=== PATIENT | male | born 1955 | race Caucasian/White ===

== ENCOUNTER 2018-02-21 09:37 | Inpatient (IN) | payer OTHER ==
[~2018-02-21] VITALS: Ht 177.8 cm; Wt 99.0 kg
[~2018-02-21 09:37] MED LIST: ALBU90OI6 INH; ALPR.5 PO; ALPR1; AMOX875 PO; ASPI81EC PO; BLOOD PRESSURE MED; BUPR150T2; CEPH500 PO; CYAN1000 PO; FLUSAL5005 INH; GAVILAX17 GM PO; GEMF600 PO; HYDMOR2 PO; IBUP800 PO; LEVFLO500 PO; LISHYD2012 PO; MONT10T PO; NIFE60ER; Naprosyn500 MG PO; POLY500 PO; ROXICODONE5 MG PO; RXCEPH500 PO; RXHYDMOR2 PO; SALM50IP; TAMS.4ER PO; TIOT18 INH; Ultram50 MG PO; ZOLP10; ZOLP10 PO
[2018-02-21 10:50] LABS: Base Excess Venous -3.8 mmol/L; Bicarbonate Venous 21.7 mmol/L (24.0-30.0); PCO2 Venous 34.3 mmHg (38-42); PO2 Venous 92 mmHg (38-42)
[2018-02-21 10:52] LABS: BASOPHILS ABSOLUTE AUTO 0.03 K/mm3 (0.00-0.23); BASOPHILS PERCENT AUTO 0 % (0-2); EOSINOPHILS ABSOLUTE AUTO 0.02 K/mm3 (0.00-0.68); EOSINOPHILS PERCENT AUTO 0 % (0-6); Hematocrit 35.8 % (37.0-53.0); IMMATURE GRAN PERCENT AUTO 1 % (0-1); LYMPHOCYTES ABSOLUTE AUTO 0.44 K/mm3 (0.84-5.20); LYMPHOCYTES PERCENT AUTO 5 % (21-46); MONOCYTES ABSOLUTE AUTO 0.76 K/mm3 (0.16-1.47); MONOCYTES PERCENT AUTO 9 % (4-13); Mean Corpuscular HGB 30.6 pg (26.0-34.0); Mean Corpuscular HGB Conc 33.5 g/dL (31.5-36.5); Mean Corpuscular Volume 91 fL (80-100); Mean Platelet Volume 9.5 fL (9.1-12.4); NEUTROPHILS ABSOLUTE AUTO 6.81 K/mm3 (1.96-9.15); NEUTROPHILS PERCENT AUTO 84 % (41-73); Platelet Count 326 K/mm3 (150-400); RDW Coefficient Variation 13.5 % (11.7-14.2); RDW Standard Deviation 45.4 fL (35.1-46.3); Red Blood Cell Count 3.92 M/mm3 (4.30-5.90); White Blood Cell Count 8.16 K/mm3 (4.00-11.30)
[2018-02-21 11:22] LABS: Alanine Aminotransfer (ALT/SGP 29 U/L (12-78); Albumin, Blood 2.9 g/dL (3.4-5.0); Albumin/Globulin Ratio 0.6 (0.8-1.8); Alk Phos 57 U/L (50-136); Anion Gap 9 mmol/L (6-16); Aspartate Aminotrans (AST/SGOT 23 U/L (12-37); Bilirubin, Total 0.3 mg/dL (0.1-1.0); Blood Urea Nitrogen 22 mg/dL (8-24); CO2, Blood 23 mmol/L (21-32); Calcium, Blood 9.2 mg/dL (8.5-10.1); Chloride, Blood 99 mmol/L (98-108); Globulin, Blood 4.7 g/dL (2.2-4.0); Glomerular Filtration Rate >60 (60-); Glucose, Blood 91 mg/dL (70-99); Potassium, Blood 4.1 mmol/L (3.5-5.5); Sodium, Blood 131 mmol/L (136-145); Total Protein, Blood 7.6 g/dL (6.4-8.2); Troponin I <0.015 ng/mL (0.000-0.040)
[2018-02-21 11:24] LABS: Thyroid Stimulating Hormone 0.437 uIU/mL (0.360-4.800)
[2018-02-21 17:05] LABS: U Amphetamine Screen Not Detected; U Barbituate Screen Not Detected; U Benzodiazapine Screen Not Detected; U Buprenorphine Screen Not Detected; U Cannabinoids Screen Not Detected; U Cocaine Screen Not Detected; U Methadone Screen Not Detected; U Methamphetamine Screen Not Detected; U Opiates Screen Not Detected; U Oxycodone Screen DETECTED; U Phencyclidine Screen Not Detected; U Propoxyphene Screen Not Detected
[2018-02-21 17:12] LABS: Bilirubin, Urine Neg (Neg); Blood, Urine 2+ (Neg); Glucose Qualitative, Urine Neg (Neg); Ketones, Urine Neg (Neg); Leukocyte Esterase, Urine Neg (Neg); Nitrite, Urine Neg (Neg); Protein, Urine 2+ (Neg); Urobilinogen, Urine NORM (Normal); pH, Urine 6.5 (5.0-8.0)
[2018-02-21 17:14] LABS: Appearance, Urine Clear (Clear); Color, Urine Yellow (P-Yellow)
[2018-02-21 17:15] LABS: Bacteria Few /hpf; Squamous Epithelial Cells Few /hpf (Few); White Blood Cells, Urine 0-2 /hpf (0-5)
[2018-02-22 13:43] LABS: Creatinine, Blood 0.97 mg/dL (0.60-1.20); Vancomycin, Trough 7.8 ug/mL (5.0-10.0)
[2018-02-23 04:07] LABS: Hemoglobin 10.7 g/dL (13.5-17.5); Mean Corpuscular HGB 30.1 pg (26.0-34.0); Mean Corpuscular HGB Conc 33.4 g/dL (31.5-36.5); Mean Corpuscular Volume 90 fL (80-100); Mean Platelet Volume 9.9 fL (9.1-12.4); Platelet Count 377 K/mm3 (150-400); RDW Coefficient Variation 13.6 % (11.7-14.2); Red Blood Cell Count 3.55 M/mm3 (4.30-5.90); White Blood Cell Count 10.48 K/mm3 (4.00-11.30)
[2018-02-23 04:27] LABS: Anion Gap 7 mmol/L (6-16); Blood Urea Nitrogen 27 mg/dL (8-24); Bun/Creatinine Ratio 29.5 (12.0-20.0); CO2, Blood 23 mmol/L (21-32); Calcium, Blood 9.3 mg/dL (8.5-10.1); Chloride, Blood 106 mmol/L (98-108); Creatinine, Blood 0.92 mg/dL (0.60-1.20); Glomerular Filtration Rate >60 (60-); Glucose, Blood 177 mg/dL (70-99); Potassium, Blood 4.4 mmol/L (3.5-5.5); Sodium, Blood 136 mmol/L (136-145)
[2018-02-24] MEDS ORDERED: METO50ER PO (08:24)
[2018-02-24] MEDS ORDERED: LEVO750 PO (08:25)
[2018-02-24] MEDS ORDERED: XARELTO20 MG PO (08:25)
[2018-02-24] MEDS ORDERED: PRED10 (08:28)
== END 2018-02-24 11:09 | disposition home or self-care (01) | DRG 871 ==
LOC: ER 09:37 → ICUW 11:44 → PCU 12:50 → ICUW 02-22 08:01 → PCU 02-22 16:22
PROVIDERS: Emergency Medicine; Internal Medicine; Pharmacist
DX: A41.9 Sepsis, unspecified organism (principal); J18.9 Pneumonia, unspecified organism; J96.01 Acute respiratory failure with hypoxia; J44.1 Chronic obstructive pulmonary disease with (acute) exacerbation; E87.1 Hypo-osmolality and hyponatremia; R65.20 Severe sepsis without septic shock; Y95 Nosocomial condition; I48.91 Unspecified atrial fibrillation; F17.200 Nicotine dependence, unspecified, uncomplicated; E78.5 Hyperlipidemia, unspecified; Z79.51 Long term (current) use of inhaled steroids; Z79.899 Other long term (current) drug therapy
CPT/HCPCS: 36415; 71045; 71260; 80048; 80053; 80202; 81001; 82565; 82803; 83605; 83690; 83880; 84443; 84484; 85025; 85027; 87070; 87205; 93005; 93010; 93306; 94640; 94760; 96361; 96365; 99285; J1650; J1956; J2543; J2930; J3370; J7030; J7050; J7120; Q9967

== ENCOUNTER → 2018-03-30 | Outpatient (CLI) | payer OTHER, SELFPAY ==
[~2018-03-30] MED LIST changes: +LEVO750 PO; +METO50ER PO; +PRED10; +XARELTO20 MG PO
== END | disposition home or self-care (01) ==
LOC: PLD 13:55 → LAB SHORT 13:55
DX: D04.61 Carcinoma in situ of skin of right upper limb, including shoulder (principal)
CPT/HCPCS: 88305

== ENCOUNTER → 2018-10-31 | Outpatient (CLI) | payer OTHER | END | disposition home or self-care (01) | LOC: PLD 11:08 → LAB SHORT 11:08 | DX: L57.0 Actinic keratosis (principal) | CPT/HCPCS: 88305 ==

== ENCOUNTER 2020-11-25 08:37 | Day surgery (SDC) | payer OTHER, SELFPAY ==
[~2020-11-25] VITALS: Ht 177.8 cm; Wt 88.3 kg
--- NOTE | 2020-11-25 09:09 | NUR ---
11/25/20 0909 Caron Friend INSTANTLY BRUISED ON IV FYI
--- NOTE | 2020-11-25 10:34 | NUR ---
11/25/20 1034 Mi Johansen 6ML NACL USED FOR POLYP REMOVAL.
[2021-05-15] MEDS ORDERED: MONT10T PO (09:52)
[2021-05-15] MEDS ORDERED: LISINOPRIL-HCT1 EACH PO (09:52)
[2021-05-15] MEDS ORDERED: IBUP800 PO (09:52)
== END 2020-11-25 10:56 | disposition home or self-care (01) ==
LOC: ORSCSDS 08:37
PROVIDERS: Internal Medicine Gastroenterology
PROC: 0DBL8ZX Excision of Transverse Colon, Via Natural or Artificial Opening Endoscopic, Diagnostic (ICD-10-PCS; principal; 2020-11-25 09:45)
PROC: 0DBN8ZX Excision of Sigmoid Colon, Via Natural or Artificial Opening Endoscopic, Diagnostic (ICD-10-PCS; principal; 2020-11-25 09:45)
PROC: 0DBP8ZX Excision of Rectum, Via Natural or Artificial Opening Endoscopic, Diagnostic (ICD-10-PCS; principal; 2020-11-25 09:45)
DX: Z12.11 Encounter for screening for malignant neoplasm of colon (principal); C20 Malignant neoplasm of rectum; Z86.010 Personal history of colon polyps; D12.3 Benign neoplasm of transverse colon; D12.4 Benign neoplasm of descending colon; I10 Essential (primary) hypertension; E78.00 Pure hypercholesterolemia, unspecified; J44.9 Chronic obstructive pulmonary disease, unspecified; Z79.899 Other long term (current) drug therapy; I48.91 Unspecified atrial fibrillation; Z79.01 Long term (current) use of anticoagulants; F17.210 Nicotine dependence, cigarettes, uncomplicated
CPT/HCPCS: 88305; J2704; J7120

== ENCOUNTER 2020-12-04 10:14 | Day surgery (SDC) | payer OTHER, SELFPAY ==
[~2020-12-04] VITALS: Ht 177.8 cm; Wt 86.0 kg
[2020-12-04] MEDS ORDERED: ASPI81CH (10:29)
[2021-05-15] MEDS ORDERED: IBUP800 PO (09:52)
[2021-05-15] MEDS ORDERED: MONT10T PO (09:52)
[2021-05-15] MEDS ORDERED: LISINOPRIL-HCT1 EACH PO (09:52)
== END 2020-12-04 12:34 | disposition home or self-care (01) ==
LOC: ORSCSDS 10:14
PROVIDERS: Internal Medicine Gastroenterology
PROC: 3E0H8KZ Introduction of Other Diagnostic Substance into Lower GI, Via Natural or Artificial Opening Endoscopic (ICD-10-PCS; principal; 2020-12-04 11:30)
PROC: 0DBP8ZX Excision of Rectum, Via Natural or Artificial Opening Endoscopic, Diagnostic (ICD-10-PCS; principal; 2020-12-04 11:30)
DX: C20 Malignant neoplasm of rectum (principal); K62.1 Rectal polyp; K57.30 Diverticulosis of large intestine without perforation or abscess without bleeding; K64.8 Other hemorrhoids; Z86.010 Personal history of colon polyps; I10 Essential (primary) hypertension; E78.00 Pure hypercholesterolemia, unspecified; J44.9 Chronic obstructive pulmonary disease, unspecified; Z79.899 Other long term (current) drug therapy
CPT/HCPCS: 88305; J2704; J7120

== ENCOUNTER 2021-05-22 10:11 | Day surgery (SDC) | payer MEDICARE, OTHER ==
[~2021-05-22] VITALS: Ht 177.8 cm; Wt 79.1 kg
[~2021-05-22 10:11] MED LIST changes: +ASPI81CH; +LISINOPRIL-HCT1 EACH PO
--- NOTE | 2021-05-22 10:54 | NUR ---
05/22/21 1054 Faina Quiroz UNSUCCESSFUL IV ATTEMPT TO RIGHT WRIST. SUCCESSFUL IV TO RIGHT FOREARM.
== END 2021-05-22 12:10 | disposition home or self-care (01) ==
LOC: ORSCSDS 10:11
PROVIDERS: Internal Medicine Gastroenterology
PROC: 0DJD8ZZ Inspection of Lower Intestinal Tract, Via Natural or Artificial Opening Endoscopic (ICD-10-PCS; principal; 2021-05-22 11:15)
DX: K62.5 Hemorrhage of anus and rectum (principal); Z85.048 Personal history of other malignant neoplasm of rectum, rectosigmoid junction, and anus; Z86.010 Personal history of colon polyps; K64.4 Residual hemorrhoidal skin tags; J44.9 Chronic obstructive pulmonary disease, unspecified; E78.5 Hyperlipidemia, unspecified; I10 Essential (primary) hypertension; I48.91 Unspecified atrial fibrillation; F17.210 Nicotine dependence, cigarettes, uncomplicated; E66.9 Obesity, unspecified; Z68.33 Body mass index [BMI] 33.0-33.9, adult; Z79.899 Other long term (current) drug therapy
CPT/HCPCS: J2704; J7120

== ENCOUNTER 2023-11-22 11:28 | Day surgery (SDC) | payer OTHER ==
[~2023-11-22] VITALS: Ht 177.8 cm; Wt 97.0 kg
[2023-11-22] MEDS ORDERED: MULVITA (12:07)
[2023-11-22] MEDS ORDERED: ZINC15 (12:07)
[2023-11-22] MEDS ORDERED: Vitamin C100 M1 (12:07)
[2023-11-22] MEDS ORDERED: ERGO400 (12:07)
[2023-11-22] MEDS ORDERED: Vitamin B-12100 MCG (12:07)
[2023-11-22 14:06] VITALS: BP 98/64
== END 2023-11-22 13:58 | disposition home or self-care (01) ==
LOC: ORSCSDS 11:28
PROVIDERS: Internal Medicine Gastroenterology
PROC: 0DJD8ZZ Inspection of Lower Intestinal Tract, Via Natural or Artificial Opening Endoscopic (ICD-10-PCS; principal; 2023-11-22 12:45)
DX: Z12.11 Encounter for screening for malignant neoplasm of colon (principal); Z85.048 Personal history of other malignant neoplasm of rectum, rectosigmoid junction, and anus; Z86.010 Personal history of colon polyps; K64.4 Residual hemorrhoidal skin tags; I10 Essential (primary) hypertension; J44.9 Chronic obstructive pulmonary disease, unspecified; E78.5 Hyperlipidemia, unspecified; Z79.82 Long term (current) use of aspirin; Z79.899 Other long term (current) drug therapy
CPT/HCPCS: J0461; J2405; J2704; J7120; Q9968

== ENCOUNTER 2025-10-03 07:31 | Day surgery (SDC) | payer OTHER ==
[2025-10-03] VITALS (33 sets, daily range): BP systolic 130–196; BP diastolic 61–99
[~2025-10-03] VITALS: Ht 177.8 cm; Wt 114.0 kg
[~2025-10-03 07:31] MED LIST changes: +ASPI81CH PO; +BREZTRI AEROS10.7 GM INH; +ERGO400; +FLUT1DIS8 INH; +Furosemide20 MG PO; +METF500 PO; +MULVITA; +POTA10T PO; +PRED20 PO; +ROSUVASTATIN CA20 MG PO; +Vitamin B-12100 MCG; +Vitamin C100 M1; +ZINC15
[2025-10-03] MEDS ORDERED: Midazolam HCl 1MG / ML 2ML Vial ONE (09:30)
[2025-10-03] MEDS ORDERED: CeFAZolin Sodium 2,000 MG in NS 100 ML IV SCH ×2 (09:55→19:00)
[2025-10-03] MEDS ORDERED: EPINEPhrine HCl 1 MG / ML 30ML Vial ONE (10:25)
[2025-10-03] MEDS ORDERED: FentaNYL Citrate 50 MCG/ML 2 ML Injection ONE (10:29)
[2025-10-03] MEDS ORDERED: Rocuronium Bromide 10 MG/ML 5ML Injection IV ONE (10:31)
[2025-10-03] MEDS ORDERED: Phenylephrine HCl 100 MCG/ML-NS 10MLSYR (1MG/10ML) ONE ×2 (10:52→11:30)
[2025-10-03] MEDS ORDERED: Dexamethasone Sod Phos 10 MG/ML 1ML VIAL ONE (11:02)
[2025-10-03] MEDS ORDERED: Ondansetron HCl 2 MG / ML 2ML Vial ONE (11:02)
[2025-10-03] MEDS ORDERED: Ketamine HCl 100 MG / ML 5ML Vial ONE (11:04)
[2025-10-03] MEDS ORDERED: FentaNYL Citrate 50 MCG/ML 2 ML Injection IV PRN ×3 (11:10→21:10)
[2025-10-03] MEDS ORDERED: HYDROmorphone HCl/Pf 1MG SYR IV PRN ×3 (11:10→17:05)
[2025-10-03] MEDS ORDERED: Albuterol 2.5 MG/3 ML VIAL INH PRN ×2 (11:15→23:30)
[2025-10-03] MEDS ORDERED: Metoclopramide HCl 5MG / ML 2ML Vial IV PRN (11:15)
[2025-10-03] MEDS ORDERED: Bupivacaine 0.25% Epi 1:200000 30 ML Vial INJ ONE (11:15)
[2025-10-03] MEDS ORDERED: Sugammadex Sodium 200 MG/2ML SDV (100 MG/ML) ONE (12:24)
--- NOTE | 2025-10-03 14:45 | NUR ---
PT ARRIVED VERY PAINFUL PT REPORTS PAIN OF 10/10 PT IS ON 5L O2 BASELINE O2 SATS IN THE LOW 90'S BP ELEVATED, REPORTED TO ALTERATION WORKER ALTERATION WORKER CONTACTED MD FOR POSSIBLE EXTENDED STAY PT INFORMED US THAT HE HAS NO ONE TO HELP HIM ONCE HE GETS HOME MEDICATED WITH 5MG OXYCODONE AND 0.5 DILAUDID 20 MINS LATER PATIENT IS SLEEPING QUIETLY
[2025-10-03] MEDS ORDERED: HydrALAZINE HCl 20 MG / ML 1ML Vial IV ONE (15:40)
--- NOTE | 2025-10-03 16:18 | NUR ---
pt tolerating po food and liquid obtained a v.o from dr corbett for hydralazine 10m for the paitents elevated BP It has not been very effective the most recent BP is 190/82 Dr Neil is aware that this RN and the charge nurse are concerned with aftercare. the patient is painful voided x 1
[2025-10-03] MEDS ORDERED: Dexmedetomidine HCL 200 MCG / 2 ML ONE (16:54)
--- NOTE | 2025-10-03 17:07 | NUR ---
DR MCMAHAN AT BEDSIDE, ADMINSITERED PRECEDEX TO ADDRESS PAIN AND THE ELEVATED BP HR AND BP RESPONDED WELL HR WENT FROM 90 TO 70 BP WENT FROM 190S/90S' TO 140S'/60S
[2025-10-03] MEDS ORDERED: Magnesium Hydroxide Conc 10 ML UDC PO PRN (17:10)
[2025-10-03] MEDS ORDERED: Ondansetron HCl 2 MG / ML 2ML Vial IV PRN (17:15)
[2025-10-03] MEDS ORDERED: Tranexamic Acid 100 ML IV SCH (17:25)
[2025-10-03] MEDS ORDERED: Ketorolac Tromethamine 15mg Vial IV SCH (18:00)
--- NOTE | 2025-10-03 18:09 | NUR ---
pt moved to extended observation to monitor BP o2 sat and pain. Medicated for pain 0.5 for transporttofloor o2 sats in mid 90's BP 140s 150s over 80 pain has come down from a 10 to a 7 report given to herminia on surgical floor no isues
--- NOTE | 2025-10-03 18:17 | NUR ---
POST OP S/P R SHOULDER ARTHROSCOPY. XEROFORM DRESSIG/ROSA WRAP TO R SHOULDER IS CDI WITH POLAR PACK IN PLACE. PT REPORTS PAIN IMPROVED SINCE BEING MEDICATED IN PACU. ABLE TO WIGGLE FINGERS, CAP REFILL <3 SECONDS, DENIES N/T. R SHOULDER IN IMMMOBILIZER. RONALD REG DIET. ORIENTED TO ROOM AND TREATMENT PLAN. CALL LIGHT WITHIN REACH. POST OP VSS IN PROGRESS AND STABLE.
[2025-10-03] MEDS ORDERED: OxyCODONE 5 mg/Acetamin 325 mg TABLET PO PRN (21:05)
[2025-10-03] MEDS ORDERED: Formoterol/Mometasone MDI 5/200 mcg 13 GM INH SCH (22:55)
[2025-10-04 03:13] VITALS: BP 166/81
[2025-10-04 04:35] VITALS: BP 175/82
--- NOTE | 2025-10-04 04:57 | NUR ---
SHIFT SUMMARY MALDONADO WAS ALERT AND FULLY ORIENTED ON ASSESSMENT. PAIN WELL MANAGED. DRESSING TO R SHOULDER C/D/I. DENIES NAUSEA, SOB, CHEST PAIN. AMBULATING/ VOIDING APPROPRIATELY/ INDEPENDENTLY. PT BP REMAINS HIGH DESPITE INTERVENTION. HOSPITALIST CONTACTED, AWAITING ORDERS. PT DOES NOTE THAT HE FEELS DIZZY/ LIGHTHEADED, BUT IS NOT DIAPHORETIC OR SOB. SENSATION/ CIRCULATION INTACT TO R ARM. NO OTHER EVENTS THIS SHIFT.
[2025-10-04 06:23] LABS: Anion Gap 10.0 mmol/L (3-11); Blood Urea Nitrogen 29.0 mg/dL (8-24); CO2, Blood 27.0 mmol/L (21-32); Calcium, Blood 8.9 mg/dL (8.5-10.1); Chloride, Blood 102.0 mmol/L (98-108); Creatinine, Blood 1.0 mg/dL (0.60-1.20); Glucose, Blood 176.0 mg/dL (70-99); Potassium, Blood 5.9 mmol/L (3.5-5.5); Sodium, Blood 133.0 mmol/L (136-145)
[2025-10-04 07:28] VITALS: BP 140/76
[2025-10-04] MEDS ORDERED: Insulin Human Lispro 100 Units/ML 3ML Syringe SC SCH (07:30)
[2025-10-04] MEDS ORDERED: Potassium Chloride 10 Meq Tablet SA PO SCH (09:00)
[2025-10-04] MEDS ORDERED: Misc. Inhaler INH SCH (09:00)
[2025-10-04] MEDS ORDERED: Enoxaparin 40 MG/0.4 ML SYR SC SCH (09:00)
[2025-10-04 14:07] VITALS: BP 141/64
--- NOTE | 2025-10-04 18:45 | NUR ---
SHIFT SUMMARY POD1 R SHOULDER ARTHROSCOPY, A/OX4, VSS, TOLERATIN PO PAIN WELL MANAGED PER EMAR, INDEPENDENT IN THE ROOM THOUGH HE NEEDED SOME ASSISTANCE WITH LINES/WIRES CONNECTED TO HIM. POSSIBLE DC TOMORROW. NO ACUTE EVENTS THIS SHIFT, CALL LIGHT IN REACH.
[2025-10-04 19:26] VITALS: BP 142/66
[2025-10-05 05:06] VITALS: BP 133/71
--- NOTE | 2025-10-05 05:11 | NUR ---
SHIFT SUMMARY MALDONADO WAS ALERT AND FULLY ORIENTED ON ASSESSMENT. PAIN WELL MANAGED. DRESSING C/D/I. CIRCULATION/ SENSATION TO BUE INTACT. DENIES SOB, CHEST PAIN, NAUSEA. B/P GREATLY IMPROVED FROM PREV NOC. AMB/ VOIDS WITHOUT ISSUE. NO ACUTE EVENTS TONIGHT. NO NOTED CHANGES TO PT CONDITION.
[2025-10-05 07:16] VITALS: BP 150/77
--- NOTE | 2025-10-05 12:28 | NUR ---
DISCHARGE: PT DC TO HOME WITH GRANDSON. VERBALIZED UNDERSTANDING OF INSTRUCTIONS, FOLLOW UP, PROBLEMS TO REPORT AND MEDICATIONS. PT PREFILLED PAIN MEDICATION. ASSISTED TO DRESS AND ADJUST IMMOBILIZER. IV DC'D WNL. PT LEFT WITH PERSONASL BELONGINGS.
== END 2025-10-05 12:26 | disposition home or self-care (01) ==
LOC: ORSCMMR 07:31 → ORD 10:15 → SURS 17:50 → ORSCMMR 10-05 12:26
PROVIDERS: Nurse Practitioner Acute Care; Orthopaedic Surgery Sports Medicine
PROC: 0RNJ4ZZ Release Right Shoulder Joint, Percutaneous Endoscopic Approach (ICD-10-PCS; principal; 2025-10-03 08:45)
DX: M75.121 Complete rotator cuff tear or rupture of right shoulder, not specified as traumatic (principal); M75.41 Impingement syndrome of right shoulder; J44.9 Chronic obstructive pulmonary disease, unspecified; Z87.891 Personal history of nicotine dependence; I48.91 Unspecified atrial fibrillation; I50.9 Heart failure, unspecified; Z79.899 Other long term (current) drug therapy; Z79.82 Long term (current) use of aspirin; Z85.048 Personal history of other malignant neoplasm of rectum, rectosigmoid junction, and anus; Z99.81 Dependence on supplemental oxygen; Z79.84 Long term (current) use of oral hypoglycemic drugs
CPT/HCPCS: 36415; 80048; 82947; 94640; 94664; 94762; A9270; C1713; J0165; J0360; J0690; J1100; J1171; J1650; J1885; J2250; J2371; J2405; J2704; J3010; J7120